=== PATIENT | female | born 1985 | race Caucasian/White ===

== ENCOUNTER 2016-12-24 09:37 | Emergency (ER) | payer SELFPAY | END 2016-12-24 11:41 | disposition home or self-care (01) | LOC: D.ER 09:37 | DX: K02.9 Dental caries, unspecified (principal); K08.89 Other specified disorders of teeth and supporting structures; L03.90 Cellulitis, unspecified; F17.200 Nicotine dependence, unspecified, uncomplicated ==

== ENCOUNTER 2017-01-04 12:57 | Emergency (ER) | payer SELFPAY ==
[2017-01-04 15:58] LABS: HCG SERUM NEGATIVE (NEGATIVE)
== END 2017-01-04 16:50 | disposition home or self-care (01) ==
LOC: D.ER 12:57
PROVIDERS: Physician Assistant
DX: H73.892 Other specified disorders of tympanic membrane, left ear (principal); R60.0 Localized edema; R04.0 Epistaxis; Y04.2XXA Assault by strike against or bumped into by another person, initial encounter; Y93.89 Activity, other specified; Y92.89 Other specified places as the place of occurrence of the external cause

== ENCOUNTER → 2017-03-01 | Emergency (ER) | payer SELFPAY | END | disposition home or self-care (01) | LOC: D.ER 19:32 | DX: K59.00 Constipation, unspecified (principal); F17.200 Nicotine dependence, unspecified, uncomplicated ==